=== PATIENT | female | born 1995 | race Two or more races ===

== ENCOUNTER 2016-05-06 19:21 | Emergency (ER) | payer OTHER ==
[~2016-05-06] VITALS: Ht 157.5 cm; Wt 65.8 kg
[2016-05-06] MEDS ORDERED: ONDANSETRON HCL/PF 4 MG/2 ML VIAL ONE ×2 (19:54→22:24)
[2016-05-06] MEDS ORDERED: MORPHINE SULFATE INJ 2 MG/ML DISP.SYRIN ONE (19:54)
[2016-05-06] MEDS ORDERED: MORPHINE SULFATE INJ 4 MG/ML DISP.SYRIN ONE (19:54)
[2016-05-06 19:57] LABS: BASOPHILS # (AUTO) 0.2 /CMM (0.0-0.2); BASOPHILS % (AUTO) 2.3 % (0.0-2.0); DIFF TOTAL % 100 %; EOSINOPHILS # (AUTO) 0.2 /CMM (0.0-0.7); EOSINOPHILS % (AUTO) 2.2 % (0.0-6.0); HEMATOCRIT 36 % (33-45); HEMOGLOBIN 11.9 g/dL (11.5-14.8); LYMPHOCYTES # (AUTO) 1.5 /CMM (0.8-4.8); LYMPHOCYTES % (AUTO) 18.4 % (20.0-44.0); MEAN CORPUSCULAR HEMOGLOBIN 30 PG (26.0-33.0); MEAN CORPUSCULAR HGB CONC 33 g/dl (31.0-36.0); MEAN CORPUSCULAR VOLUME 90 fL (82-100); MONOCYTES # (AUTO) 0.4 /CMM (0.1-1.30); MONOCYTES % (AUTO) 4.5 % (2.0-12.0); NEUTROPHILS # (AUTO) 5.7 /CMM (1.8-8.9); NEUTROPHILS % (AUTO) 72.6 % (43.0-81.0); PLATELET COUNT (AUTO) 238 /CMM (150-450); RED BLOOD CELL COUNT(AUTO) 4.02 MIL/uL (4.0-5.2)
[2016-05-06] MEDS ORDERED: MORPHINE SULFATE INJ 2 MG/ML DISP.SYRIN IV ONE (20:00)
[2016-05-06] MEDS ORDERED: ONDANSETRON HCL/PF 4 MG/2 ML VIAL IVP ONE (20:00)
[2016-05-06 20:06] LABS: ANION GAP 11 (5-14); CARBON DIOXIDE 28 mmol/L (21-32); CHLORIDE 104 mmol/L (98-107); CREATININE 1.1 mg/dL (0.6-1.3); GFR 63 mL/min (>60); GLUCOSE 105 mg/dL (74-106); POTASSIUM 4.2 mmol/L (3.5-5.1); SODIUM SERUM 139 mmol/L (136-145); UREA NITROGEN, BLOOD 12 mg/dL (7-18)
[2016-05-06 20:10] LABS: INR 1.04 (0.87-1.13); PROTHROMBIN TIME 10.9 SECS (9.5-12.7)
[2016-05-06 20:15] LABS: TROPONIN I < 0.017 ng/mL (0.00-0.056)
[2016-05-06 20:18] LABS: ADD UA MICROSCOPIC NO; KETONES,URINE Negative (NEGATIVE); LEUKOCYTE ESTERASE ,URINE Negative (NEGATIVE); PH,URINE 5.5 (5.0-8.0)
[2016-05-06 20:20] LABS: PREGNANCY TEST URINE QUAL NEGATIVE (NEGATIVE)
[2016-05-06] MEDS ORDERED: IV SET PRIMARY 1 EA INFUS.SET MC ONE (20:26)
[2016-05-06] MEDS ORDERED: IV NS 0.9% 1,000 ML ONE (20:26)
[2016-05-06] MEDS ORDERED: IV NS 0.9% 1,000 ML IV ONE (20:30)
[2016-05-06] MEDS ORDERED: CT SWABBABLE VALVE TRANS SET 1 EA INFUS.SET MC ONE (21:17)
[2016-05-06] MEDS ORDERED: IV NS 0.9% 250 ML IV ONE (21:17)
[2016-05-06] MEDS ORDERED: IOHEXOL-350 100 ML VIAL IV ONE (21:17)
[2016-05-06] MEDS ORDERED: ONDANSETRON HCL/PF - ER 4 MG/2 ML VIAL IV ONE (22:30)
[2016-05-06 22:59] VITALS: BP 124/76
== END 2016-05-06 23:00 | disposition home or self-care (01) ==
LOC: ER 19:23
DX: R07.1 Chest pain on breathing (principal); G89.18 Other acute postprocedural pain; R79.1 Abnormal coagulation profile
CPT/HCPCS: 36415; 71010-TC; 80048-TC; 81000-TC; 82550-TC; 84484-TC; 84703-TC; 85025-TC; 85378-TC; 85730-TC; A4606; J2270; J2405; J7030; J7050; Q9967; Z7610